=== PATIENT | female | born 1955 | race Caucasian/White ===

== ENCOUNTER 2016-12-08 14:05 | Outpatient (REF) | payer OTHER, MEDICAID, SELFPAY ==
[2016-12-08 14:06] VITALS: BP 138/86; PULSE 109; RESP 15; TEMP 35.6; O2SAT 98; BMI 24.2
--- NOTE | 2016-12-08 14:27 | ED.DEP ---
ED Disposition - Plan for ED Patient: Disposition: Home or Assisted Living Chief Complaint: Upper Extremity Injury Instructions: ED Sprain Wrist
[2016-12-08] MEDS: Ibuprofen 600 MG Tablet PO (14:28)
--- NOTE | 2016-12-08 15:41 | EDS_ITS ---
DATE OF SERVICE: 12/08/2016 CHIEF COMPLAINT: Wrist pain. HISTORY OF PRESENT ILLNESS: A 61-year-old apparently has chronic pain at her elbow from an old radial head fracture. Apparently, she was under arrest today and her wrists were too tight. Her wrist cuffs were too tight around her wrist and developed some wrist pain. PHYSICAL EXAMINATION: GENERAL: Reveals tenderness over the elbow, but full range of motion, this is chronic. There is some tenderness over her wrist, but no swelling, edema and full range of motion. EMERGENCY DEPARTMENT COURSE: The patient was reassured. I gave her Motrin and discharge her in the custody of the police. IMPRESSION: Wrist pain. DISPOSITION: Home, stable. Lincoln Graham MD T: NTS JOB: [id number]
== END 2016-12-08 14:25 | disposition home or self-care (01) ==
LOC: EDREF 14:05
PROVIDERS: Visit Provider Emergency Medicine
DX: Z76.0 Encounter for issue of repeat prescription (principal)
CPT/HCPCS: 99282

== ENCOUNTER 2018-04-17 09:25 | Emergency (ER) | payer MEDICAID, SELFPAY ==
[2018-04-17 09:26] VITALS: BP 125/82; PULSE 102; RESP 18; TEMP 36.6; O2SAT 98; BMI 29.1
--- NOTE | 2018-04-17 09:47 | RAD_ITS ---
STUDY: X-RAY - PELVIS AND LEFT HIP REASON FOR EXAM: Female, 62 years old. Fall into left hip. TECHNIQUE: Radiological exam, hip, unilateral, with pelvis when performed; 1 view COMPARISON: None. FINDINGS: There is no evidence of acute pelvic, ramus, or proximal femur fracture. No significant hip joint degenerative changes. Periarticular soft tissues normal. Multiple pelvic phleboliths. No acute intrapelvic process is evident. IMPRESSION: No evidence of acute pelvic/hip injury. Electronically Signed: Orion Marita, at 10:42 EDT Tel , Service support , STUDY: X-RAY - PELVIS REASON FOR EXAM: Female, 62 years old. Fall onto left hip TECHNIQUE: One view of the pelvis was obtained. COMPARISON: None. FINDINGS: Intact iliac crests, acetabula, pubic rami, proximal femurs. No significant hip joint degenerative changes. No significant SI joint degenerative changes and no significant low lumbar spondylosis. RAD/Hip 2-3 Views with Pelvis IMPRESSION: No radiographic evidence of acute traumatic injury. Electronically Signed: Orion Kirkland, at 10:44 EDT Tel , Service support ,
--- NOTE | 2018-04-17 11:19 | ED.VISSUMM ---
- ER Visit Summary Date of Service: 04/17/18 Chief Complaint: Left hip pain History of Present Illness: The patient is a 62 F who suffered a mechanical fall while walking in a muddy area yesterday. She is complaining of pain to the left hip. She is able to walk but walks with antalgic gait. She has been taking ibuprofen for pain. She denies any other injury. Physical Examination: Vital signs unremarkable. Patient is in no acute distress. Head neck examination was no external sign of trauma. No C-spine tenderness. Heart is regular rate and rhythm. On lung sounds are clear. Abdomen is soft nontender. Lower extremity examination reveals tenderness of the anterior and lateral portion of the left hip. There is no pain with logroll. There is equal leg lengths. She has strong distal pulses. Test Results: Left hip and pelvis x-rays reveal no acute injury. Emergency Department Course and Treatment: Patient will be instructed to continue ibuprofen. Treatment Plan: [] Disposition: Discharge Impression: Mechanical fall with left hip contusion This note was generated with [employer] dictation software. It may contain incorrect words, spelling, and punctuation that were not noted in review of the chart prior to signing ED Disposition - Plan for ED Patient: Chief Complaint: Lower Extremity Injury Referrals: Care Physician,No Primary [Primary Care Provider] -
--- NOTE | 2018-04-17 11:20 | ED.DEP ---
ED Disposition - Plan for ED Patient: Disposition: Home or Assisted Living Chief Complaint: Lower Extremity Injury Instructions: ED Contusion Lower Ext Referrals: Fast,Aubree, DO [NON-STAFF] - As Needed
[2018-04-17 11:25] VITALS: BP 118/62
[2018-04-17 11:28] VITALS: BP 118/62; PULSE 75; RESP 16; O2SAT 98
== END 2018-04-17 11:29 | disposition home or self-care (01) ==
PROVIDERS: Emergency Provider Emergency Medicine
DX: S70.02XA Contusion of left hip, initial encounter (principal); W18.39XA Other fall on same level, initial encounter; Y93.01 Activity, walking, marching and hiking; Y92.89 Other specified places as the place of occurrence of the external cause; I10 Essential (primary) hypertension; E11.9 Type 2 diabetes mellitus without complications; Z72.0 Tobacco use
CPT/HCPCS: 73502; 99282

== ENCOUNTER 2018-05-19 17:27 | Emergency (ER) | payer MEDICAID, SELFPAY ==
[2018-05-19 17:28] VITALS: BP 156/90; PULSE 110; RESP 20; TEMP 37; O2SAT 99; BMI 29.1
--- NOTE | 2018-05-19 18:23 | ED.DCSUM_ITS ---
- ER Visit Summary Date of Service: 05/19/18 Chief Complaint: Left lower and upper dental pain with mild left facial swelling. History of Present Illness: The patient is a 62 F who knows she has decaying teeth in the left upper lower jaw both the upper and lower molars. She says she thinks it became infected. She was seen at the [facility] urgent care 2 days ago started on Augmentin. Also said she saw [facility] but they wanted money up front tooth which she could not afford she is to try to get in to see another dentist. She said most would not take her insurance. She denies any fever or trouble swallowing. Physical Examination: Well-appearing 62-year-old female. Vital signs are stable afebrile. No acute distress. H EENT exam left upper and lower molars are decayed. There is mild gingival swelling and tenderness to palpation. There is no discrete abscess. No trismus. No trouble swallowing or breathing. Neck nontender no lymphadenopathy. No swelling to the floor of her mouth. Lungs clear to auscultation bilaterally. Heart regular rate and rhythm no murmur. Abdomen soft nontender. Moving all 4 extremities. Neurologic exam normal. Test Results: None Emergency Department Course and Treatment: Patient is already on Augmentin from the [facility] urgent care. She is a prescription for 10 days. She can use Motrin for pain and inflammation. Ice to her face. Warm salt water gargling. And follow-up with a dentist. Treatment Plan: Continue her Augmentin and use Motrin for pain and swelling. Disposition: Discharge Impression: Dental caries and decay with gingival swelling. Dental infection This note was generated with [employer] dictation software. It may contain incorrect words, spelling, and punctuation that were not noted in review of the chart prior to signing ED Disposition - Plan for ED Patient: Chief Complaint: Dental Referrals: Care Physician,No Primary [Primary Care Provider] -
--- NOTE | 2018-05-19 18:23 | ED.DEP ---
ED Disposition - Plan for ED Patient: Disposition: Home or Assisted Living Chief Complaint: Dental Instructions: ED Tooth Pain, ED Cavity Dental Additional Instructions: Ice to decrease facial swelling. Motrin or ibuprofen for pain and inflammation. Your antibiotic prescription is Augmentin he should be using it twice a day till gone. Warm salt water gargling. Follow-up with a dentist as soon as possible.
== END 2018-05-19 18:45 | disposition home or self-care (01) ==
LOC: ED 18:36
PROVIDERS: Emergency Provider Emergency Medicine
DX: K02.9 Dental caries, unspecified (principal); K04.7 Periapical abscess without sinus; Z72.0 Tobacco use
CPT/HCPCS: 99282

== ENCOUNTER 2018-07-16 11:31 | Emergency (ER) | payer MEDICAID, SELFPAY ==
[2018-07-16 11:31] VITALS: BP 153/90; PULSE 101; RESP 16; TEMP 36.7; O2SAT 98
--- NOTE | 2018-07-16 12:02 | ED.VISSUMM ---
- ER Visit Summary Date of Service: 07/16/18 Chief Complaint: Right arm injury History of Present Illness: The patient is a 62 F states she is walking along the road when she fell on outstretched right hand. She notes that she has pain in the elbow and in the mid humerus region. She states that she will not allow anybody to touch it. She states that she while she can move it in all directions she wants to a hairline fracture. She denies any swelling. She denies any acute ingestion of drugs or alcohol. She denies any suicidal or homicidal ideation Physical Examination: Afebrile vital signs are stable Gen: Well-nourished well-developed Head: Normocephalic atraumatic Eyes: Perrl EOMI ENT: TMs clear no rhinorrhea moist mucous membranes Neck: Supple no lymphadenopathy no JVD nontender CVS: Regular rate rhythm no murmurs normal S1-S2 Respiratory: No distress clear to auscultation bilaterally chest nontender Abdomen: Soft nontender nondistended normal bowel sounds no masses Back: Nontender Extremity: Patient is observed fully flexing and extending the elbow. She has full supination and pronation. There does not appear to be any obvious deformity. She will not allow me to palpate the arm. Skin: Normal color no rash Neuro: alert orientated ?3 CN II-XII intact normal strength sensation reflexes gait cerebellar Psych: Patient appears hyper alert. She denies suicidal or homicidal ideation. Emergency Department Course and Treatment: Patient refuses to allow a physical exam of the arm. I informed her I will not just order x-rays without being allowed to do an exam. She states that that is fine that she is going to leave here and go to the gym and get in the hot tub and then get a workout N. While the patient certainly appears to have a very odd affect she does not appear under the acute influence of drugs or alcohol. She is not suicidal or homicidal. She will be allowed to sign out AMA because I believe she has the capacity to make this decision. She understands that if she is not improving she should follow-up with primary care in 10-14 days. Impression: 1. Right arm pain status post fall 2. Left AGAINST MEDICAL ADVICE This note was generated with [employer] dictation software. It may contain incorrect words, spelling, and punctuation that were not noted in review of the chart prior to signing ED Disposition - Plan for ED Patient: Disposition: Home or Assisted Living Chief Complaint: Upper Extremity Injury Instructions: ED Sprain Elbow Referrals: Sujatha Valentin MD [STAFF PHYSICIAN] - 10-14 Days if not better
== END 2018-07-16 12:11 | disposition left against medical advice (07) ==
PROVIDERS: Emergency Provider Emergency Medicine
DX: M79.601 Pain in right arm (principal); Z91.81 History of falling; Z72.0 Tobacco use
CPT/HCPCS: 99282

== ENCOUNTER 2019-06-13 12:11 | Emergency (ER) | payer MEDICAID, SELFPAY ==
[2019-06-13 12:12] VITALS: BP 124/72; PULSE 82; RESP 15; TEMP 36.4; O2SAT 98; BMI 29.1
--- NOTE | 2019-06-13 12:32 | ED.VIS.GEN ---
History of Present Illness Chief Complaint: General Illness Detail of Chief Complaint: I think I have strep throat Informant: Patient Onset: Days - Onset June 09 Context: Sudden Onset Timing: Intermittent Quality: URI symptoms and frequent bowel movements Location: Respiratory Current Severity: Mild Maximum Severity: Mild Worsened by: Nothing Relieved by: Nothing Associated Symptoms: Read narrative Narrative: Patient is a 63-year-old woman who smokes 1/2 pack/day who presents with runny nose, postnasal drainage, sore throat, sneezing and coughing. The cough is nonproductive. She also reports increased soft mushy stools. She denies blood or mucus. She denies fever or chills. She denies nausea vomiting. No ill contacts. Prior similar symptoms: No Recent Illness/Hospitalization: No - Past Medical History (1) No significant past medical history Status: Acute Past Medical History - Allergies and Home Meds Allergies/Adverse Reactions: Allergies ciprofloxacin [From Cipro] Allergy (Verified 05/19/18 17:29) Unknown ciprofloxacin HCl [From Cipro] Allergy (Verified 05/19/18 17:29) Unknown Primary Care Physician: Care Physician,No Primary [Primary Care Provider] - Surgical History: noncontributory Lives: Alone Smoking Status: Heavy Smoker (>10/day) Alcohol: None Drugs: None Review of Systems General: Denies: Chills, Fever, Malaise, Sweats Eyes: Denies: Visual changes - left, Visual changes - right, Visual changes - bilaterally, Blurred vision - left, Blurred vision - right, Blurred Vision - bilaterally, Diplopia, -, - ENT: Reports: Rhinorrhea, Sore throat. Denies: Bilateral ear pain Cardiovascular: Denies: Chest pain, Palpitations Respiratory: Reports: Cough. Denies: Dyspnea, Sputum, Dyspnea on exertion, Orthopnea, Paroxysmal nocturnal dyspnea, -, - Gastrointestinal: Reports: Diarrhea. Denies: Abdominal pain, Nausea, Vomiting, Constipation, Melena, Hematochezia, -, - Genitourinary: Denies: Dysuria, Hematuria, Frequency Musculoskeletal: Denies: Myalgias, Arthralgias, Neck pain, Back pain, Swelling, Extremity Pain, -, - Skin: Denies: Rash Neurological: Denies: Weakness, Parasthesia, Numbness Hematologic: Denies: Easy bruising, Easy bleeding Allergy: Denies: Uticaria, Swelling of the mouth Physical Exam Vital Signs/Narrative: Vital Signs Temp Pulse Resp BP Pulse Ox 06/13/19 12:12 97.5 F L 82 15 124/72 H 98 Inital Vital Signs reviewed: Yes General: Well nourished, Well developed, No Acute Distress Head: Normocephalic, Atraumatic Eyes: Perrl, EOMI ENT: Moist mucous membranes, No rhinorrhea Neck: Supple, Nontender, No lymphadenopathy, No JVD Cardiovascular: Regular rate, Regular rhythm, No murmurs, Normal S1, Normal S2 Respiratory: No distress, CTA bilaterally, Chest nontender Abdomen: Soft, Nontender, Nondistended, Normal bowel sounds Back: Nontender, Normal Inspection Extremities: Nontender, No edema Skin: Normal color, No rash Neurological: Alert, Oriented x3, Cranial nerves II-XII grossly intact, Normal Strength, Normal Sensation Psychological: Normal affect, Normal Mood Diagnostic/Tx/Re-eval - Medical Decision Making Centor score is 0. Patient's symptoms are consistent with viral illness. Imaging and testing is not indicated. Patient was given prescription for Imodium. ED Disposition - Plan for ED Patient: Disposition: Home or Assisted Living Diagnosis: Viral illness Instructions: VIRAL SYNDROME (Adult) Prescriptions: Loperamide [Imodium] 2 mg PO UD #10 cap Prescription Printed Referrals: Care Physician,No Primary [Primary Care Provider] -
[2019-06-13 12:54] VITALS: RESP 16
--- NOTE | 2019-06-13 12:54 | ED.RN ---
REVIEWED D/C INSTRUCTIONS, FOLLOW UP CARE, PRESCRIPTION, AND S/S THAT WOULD WARRANT A RETURN TO THE ED WITH PT. PT VERBALIZED AN UNDERSTANDING AND DENIES FURTHER QUESTIONS FOR THIS RN. PT SKIN P/W/D, RESP EVEN AND UNLABORED, PT A&O X 3, NO DISTRESS NOTED. PT AMBULATED OUT OF ED, GAIT STEADY.
== END 2019-06-13 12:59 | disposition home or self-care (01) ==
LOC: ED 12:49
PROVIDERS: Emergency Provider Emergency Medicine
DX: B34.9 Viral infection, unspecified (principal); F17.210 Nicotine dependence, cigarettes, uncomplicated
CPT/HCPCS: 99282

== ENCOUNTER 2024-09-20 17:36 | Emergency (ER) | payer SELFPAY ==
[2024-09-20 17:37] VITALS: BP 199/118; PULSE 105; RESP 20; TEMP 36.6; O2SAT 100; BMI 33.8
--- NOTE | 2024-09-20 17:50 | RAD_ITS ---
STUDY: X-RAY - RIGHT HAND REASON FOR EXAM: Female, 68 years old. Injury, Digit #5 TECHNIQUE: 3 view(s) of the hand. COMPARISON: None. FINDINGS: Severe demineralization. Probable nondisplaced fracture across the mid shaft of the fifth proximal phalanx. No other acute abnormalities suggested. Normal visualized carpal bones. Normal carpal articulations There is degenerative arthrosis of the carpometacarpal (CMC) articulation of the thumb. Normal second through fifth carpometacarpal joints. Normal metacarpi. Normal metacarpophalangeal joint of the thumb. Normal interphalangeal joint of the thumb. Normal proximal and distal phalanges of the thumb. Normal metacarpophalangeal joints of the second through fifth fingers. Normal proximal and distal interphalangeal joints of the second through fifth fingers. Normal phalanges of the second through fourth fingers. The soft tissue structures are unremarkable. RAD/Hand Min 3 Views IMPRESSION: Probable nondisplaced fracture across the mid shaft of the fifth proximal phalanx. Electronically Signed: Darien Guerrero MD at 18:19 EDT ,
--- NOTE | 2024-09-20 19:08 | ED.RN ---
Pt stated she did not want to wait any longer because she would not have a ride home. Also stated, I'll come back in the morning to see if it's still busy
== END 2024-09-20 19:07 | disposition left against medical advice (07) ==
LOC: ED 19:11
DX: Z53.21 Procedure and treatment not carried out due to patient leaving prior to being seen by health care provider (principal)
CPT/HCPCS: 73130